=== PATIENT | male | born 1950 | race Caucasian/White ===

== ENCOUNTER 2017-08-31 11:40 | Inpatient (IN) | payer MEDICARE ==
[~2017-08-31] VITALS: Ht 177.8 cm; Wt 89.6 kg
[2017-08-31 12:28] LABS: BASOPHILS % (AUTO) 0.6 % (0.0-5.0); EOSINOPHILS % (AUTO) 0.9 % (0.0-8.0); HEMATOCRIT 47.4 % (42-54); LYMPHOCYTES % (AUTO) 12.7 % (21.0-51.0); MEAN CORPUSCULAR HEMOGLOBIN 29.2 pg (27.0-33.0); MONOCYTES % (AUTO) 8.7 % (3.0-13.0); NEUTROPHILS % (AUTO) 77.1 % (40.0-77.0); PLATELET COUNT (AUTO) 273 K/uL (130-400); RED CELL DISTRIBUTION WIDTH 13.6 % (11.0-15.5); WHITE BLOOD COUNT (AUTO) 5.8 K/uL (4.8-10.8)
[2017-08-31 12:49] LABS: CREATININE 0.8 mg/dL (0.5-1.5); POTASSIUM 4.2 mmol/L (3.5-5.1)
[2017-08-31 12:53] LABS: ALBUMIN 3.9 g/dL (3.5-5.0); BILIRUBIN,TOTAL 0.4 mg/dL (0.2-1.0); TOTAL PROTEIN, SERUM 7.1 g/dL (6.0-8.3)
[2017-08-31 13:06] LABS: INR 0.98 (0.85-1.15); PARTIAL THROMBOPLASTIN TIME 23.2 SEC (26.3-35.5); PROTHROMBIN TIME 10.3 SEC (9.6-11.6)
[2017-08-31 13:21] LABS: B-TYPE NATRIURETIC PEPTIDE 22 pg/mL (0-100)
[2017-08-31] MEDS ORDERED: SODIUM CHLORIDE 0.9% 1000ML 1,000 ML IV ONE (13:28)
[2017-08-31] MEDS ORDERED: SODIUM CHLORIDE 0.9% 1000ML 1,000 ML IV SCH (15:01)
[2017-08-31] MEDS ORDERED: HYDRALAZINE HCL 20 MG/ML VIAL IV PRN (15:15)
[2017-08-31] MEDS ORDERED: NITROGLYCERIN 0.4 MG SL TAB SL PRN (15:15)
[2017-08-31] MEDS ORDERED: ACETAMINOPHEN-CODEINE 300/30MG TAB PO PRN (15:15)
[2017-08-31] MEDS ORDERED: LACTULOSE 20 GM/30 ML UDCUP PO PRN (15:15)
[2017-08-31] MEDS ORDERED: ACETAMINOPHEN 325 MG TAB PO PRN ×2 (15:15)
[2017-08-31] MEDS ORDERED: ONDANSETRON HCL 4 MG/2 ML VIAL IV PRN (15:15)
[2017-08-31] MEDS ORDERED: LIDOCAINE HCL-MPF 1% 2ML VIAL IVP PRN (15:15)
[2017-08-31] MEDS ORDERED: POTASSIUM CHLORIDE 20 MEQ ERTAB PO PRN (15:15)
[2017-08-31] MEDS ORDERED: MAG HYDROX/AL HYDROX/SIMETH ES 30 ML SUSP UDCUP PO PRN (15:15)
[2017-08-31] MEDS ORDERED: POTASSIUM CHLORIDE 10% ELIXIR 20 MEQ/15 ML UDCUP PO PRN (15:15)
[2017-08-31] MEDS ORDERED: GUAIFENESIN-DM 200/20 MG 10 ML PO PRN (15:15)
[2017-08-31] MEDS ORDERED: MORPHINE SULFATE 2 MG/ML 1ML SYG IV PRN (15:15)
[2017-08-31] MEDS ORDERED: POTASSIUM CHLORIDE 20MEQ/100ML 100 ML IV PRN (15:15)
[2017-08-31 20:51] LABS: APPEARANCE,URINE Clear (CLEAR); BILIRUBIN,URINE Negative (NEGATIVE); COLOR,URINE Yellow (YELLOW); GLUCOSE, URINE (UA) Negative (NEGATIVE); KETONES,URINE Negative (NEGATIVE); LEUKOCYTE ESTERASE ,URINE Negative (NEGATIVE); NITRATE,URINE Negative (NEGATIVE); OCCULT BLOOD,URINE Negative (NEGATIVE); PH,URINE 6.5 (5.0-8.0); PROTEIN,URINE Negative (NEGATIVE); UROBILINOGEN,URINE 0.2 mg/dL (0.2-1.0)
[2017-08-31] MEDS: FAMOTIDINE/PF 20 MG/2 ML VIAL IV SCH (21:00)
[2017-08-31] MEDS ORDERED: FAMOTIDINE/PF 20 MG/2 ML VIAL IV ONE (22:42)
[2017-08-31 23:47] VITALS: BP 143/89
[2017-09-01] VITALS (12 sets, daily range): BP systolic 120–155; BP diastolic 80–101
[2017-09-01] MEDS ORDERED: ZOLPIDEM TARTRATE 5 MG TAB ONE (00:55)
[2017-09-01] MEDS ORDERED: ZOLPIDEM TARTRATE 5 MG TAB PO ONE (01:00)
[2017-09-01 04:12] LABS: HEMATOCRIT 43.6 % (42-54); MEAN CORPUSCULAR HGB CONC 33.7 g/dL (32.0-36.0); MEAN CORPUSCULAR VOLUME 85.9 fL (79-99); PLATELET COUNT (AUTO) 238 K/uL (130-400); RED BLOOD CELL COUNT(AUTO) 5.07 MIL/uL (4.50-6.20); RED CELL DISTRIBUTION WIDTH 13.1 % (11.0-15.5); WHITE BLOOD COUNT (AUTO) 4.5 K/uL (4.8-10.8)
[2017-09-01 04:37] LABS: POTASSIUM 4.7 mmol/L (3.5-5.1)
[2017-09-01] MEDS: FAMOTIDINE/PF 20 MG/2 ML VIAL IV SCH ×2 (08:34→20:30)
[2017-09-01] MEDS ORDERED: LIDOCAINE HCL 1% MDV 50ML VIAL ONE (14:14)
[2017-09-01] MEDS ORDERED: BUPIVACAINE/PF 0.25% 30ML VIAL IJ ONE (14:14)
[2017-09-01] MEDS ORDERED: MIDAZOLAM HCL 1 MG/ML 2ML VIAL ONE ×3 (16:06→16:32)
[2017-09-01] MEDS ORDERED: MEPERIDINE-PF 50 MG/ML SYG ONE ×2 (16:06→16:19)
[2017-09-01] MEDS ORDERED: CEFAZOLIN 1GM / D5W 50ML 150 ML ONE (16:06)
[2017-09-01] MEDS ORDERED: LOSA50TA37 PO (17:30)
[2017-09-01] MEDS ORDERED: DOXY100T2 PO (17:30)
[2017-09-01] MEDS ORDERED: LOSARTAN 50 MG TABLET PO SCH (21:00)
[2017-09-01] MEDS ORDERED: ZOLPIDEM TARTRATE 5 MG TAB PO PRN (21:45)
[2017-09-02] VITALS: BP 123/79
[2017-09-02] MEDS: CEFAZOLIN SODIUM 1 GM VIAL IVP SCH ×2 (00:16→10:33)
[2017-09-02 04:00] VITALS: BP 113/76
[2017-09-02 08:00] VITALS: BP 101/66
[2017-09-02 10:10] VITALS: BP 131/73
[2017-09-02] MEDS ORDERED: CEFAZOLIN SODIUM 1 GM VIAL ONE (10:30)
[2017-09-02] MEDS: FAMOTIDINE/PF 20 MG/2 ML VIAL IV SCH (10:33)
== END 2017-09-02 11:15 | disposition home or self-care (01) | DRG 243 ==
LOC: EDH 11:40 → EDHIP 16:00 → 2DH 23:35
PROVIDERS: ADMIT Internal Medicine; ATTEND Internal Medicine
PROC: 02H63JZ Insertion of Pacemaker Lead into Right Atrium, Percutaneous Approach (ICD-10-PCS; principal; 2017-09-01)
PROC: 0JH606Z Insertion of Pacemaker, Dual Chamber into Chest Subcutaneous Tissue and Fascia, Open Approach (ICD-10-PCS; 2017-09-01)
PROC: 02HK3JZ Insertion of Pacemaker Lead into Right Ventricle, Percutaneous Approach (ICD-10-PCS; 2017-09-01)
DX: I49.5 Sick sinus syndrome (principal); I44.2 Atrioventricular block, complete; E78.5 Hyperlipidemia, unspecified; I10 Essential (primary) hypertension; I45.10 Unspecified right bundle-branch block; M54.2 Cervicalgia; G89.29 Other chronic pain
CPT/HCPCS: 33208; 36415; 71045; 71046; 80048; 80053; 80061; 81003; 82550; 83880; 84443; 84484; 85025; 85027; 85610; 85730; 93005; 93306; 99152; 99153; 99291; A4218; C1785; J0690; J2175; J2250; J3490; J7030

== ENCOUNTER → 2018-07-25 | Outpatient (CLI) | payer MEDICARE ==
[~2018-07-25] MED LIST: DOXY100T2 PO; LOSA50TA64 PO
== END | disposition home or self-care (01) ==
LOC: SHCH 11:55
PROVIDERS: ATTEND Internal Medicine Cardiovascular Disease
DX: I65.23 Occlusion and stenosis of bilateral carotid arteries (principal)
CPT/HCPCS: 93880

== ENCOUNTER → 2019-08-23 | Outpatient (CLI) | payer MEDICARE, OTHER ==
[~2019-08-23] MED LIST changes: +LATA2.5D2 OP; +ROSU40 PO
== END | disposition home or self-care (01) ==
LOC: SHCH 07:52
PROVIDERS: ATTEND Internal Medicine Cardiovascular Disease
DX: I35.8 Other nonrheumatic aortic valve disorders (principal); R01.1 Cardiac murmur, unspecified
CPT/HCPCS: 93306; 93356

== ENCOUNTER 2019-08-29 05:42 | Day surgery (SDC) | payer MEDICARE, OTHER ==
[2019-08-28 12:53] VITALS: BP 140/85
[~2019-08-29] VITALS: Ht 177.8 cm; Wt 95.0 kg
[2019-08-29] VITALS (10 sets, daily range): BP systolic 117–136; BP diastolic 66–90
[~2019-08-29 05:42] MED LIST changes: -DOXY100T2 PO; -LATA2.5D2 OP
[2019-08-29] MEDS ORDERED: LATA2.5D2 OP (06:33)
[2019-08-29] MEDS ORDERED: ISOVUE-M 200 20 ML VIAL IT ONE (07:02)
--- NOTE | 2019-08-29 07:45 | NUR ---
CT CERVICAL MYELOGRAM PROCEDURE PERFORMED BY DR Nayan CALERO. PUNCTURE SITE LOWER BACK. PATIENT TOLERATED PROCEDURE WELL. END OF PROCEDURE AT 0725. CT SCAN DONE AND REPORT GIVEN TO Francisco THOMPSON RN. PATIENT TRANSPORTED TOTO DAY PATIENT AT 0745. AAAO X3 WITH NO C/O DISCOMFORT.
== END 2019-08-29 11:45 | disposition home or self-care (01) ==
LOC: DAH 05:42
PROVIDERS: ATTEND Neurological Surgery
DX: M54.12 Radiculopathy, cervical region (principal); Z79.899 Other long term (current) drug therapy; Z72.89 Other problems related to lifestyle
CPT/HCPCS: 62302; 72126; A4663; Q9966

== ENCOUNTER → 2023-07-30 | Outpatient (CLI) | payer MEDICARE ==
[~2023-07-30] MED LIST changes: +LATA2.5D14 OP
== END | disposition home or self-care (01) ==
LOC: SHCH 13:27
PROVIDERS: ATTEND Internal Medicine Cardiovascular Disease
DX: I35.1 Nonrheumatic aortic (valve) insufficiency (principal); I11.9 Hypertensive heart disease without heart failure; I27.20 Pulmonary hypertension, unspecified
CPT/HCPCS: 93306

== ENCOUNTER → 2023-08-04 | Outpatient (CLI) | payer MEDICARE | END | disposition home or self-care (01) | LOC: SHCH 09:19 | PROVIDERS: ATTEND Internal Medicine Cardiovascular Disease | DX: I65.23 Occlusion and stenosis of bilateral carotid arteries (principal); R55 Syncope and collapse; R01.1 Cardiac murmur, unspecified; Z79.899 Other long term (current) drug therapy | CPT/HCPCS: 93880 ==

== ENCOUNTER 2023-09-02 09:00 | Day surgery (SDC) | payer MEDICARE ==
[2023-08-31 08:56] VITALS: BP 140/80; PULSE 68; RESP 16
[2023-08-31 08:59] LABS: BASOPHILS # (AUTO) 0.08 K/uL (0.00-0.20); BASOPHILS % (AUTO) 1.3 % (0.0-5.0); EOSINOPHILS # (AUTO) 0.23 K/uL (0.00-0.70); EOSINOPHILS % (AUTO) 3.8 % (0.0-8.0); HEMATOCRIT 49.6 % (42-54); IMMATURE GRANULOCYTE ABSOLUTE 0.03 K/uL (0-1); LYMPHOCYTES # (AUTO) 0.9 K/uL (1.0-4.8); MEAN CORPUSCULAR HEMOGLOBIN 28.8 pg (27.0-33.0); MEAN CORPUSCULAR HGB CONC 32.7 g/dL (32.0-36.0); MEAN CORPUSCULAR VOLUME 88.3 fL (79-99); MONOCYTES # (AUTO) 0.6 K/uL (0.1-1.0); MONOCYTES % (AUTO) 10.5 % (3.0-13.0); NEUTROPHILS # (AUTO) 4.2 K/uL (1.8-7.7); NEUTROPHILS % (AUTO) 69.9 % (40.0-77.0); PLATELET COUNT (AUTO) 222 K/uL (130-400); RED BLOOD CELL COUNT(AUTO) 5.62 MIL/uL (4.50-6.20); RED CELL DISTRIBUTION WIDTH 13.5 % (11.0-15.5); WHITE BLOOD COUNT (AUTO) 6.1 K/uL (4.8-10.8)
[2023-08-31 09:06] LABS: CREATININE 0.8 mg/dL (0.5-1.5)
[2023-08-31 09:09] LABS: INR 0.94 (0.85-1.15)
[2023-08-31 09:10] LABS: PARTIAL THROMBOPLASTIN TIME 24.6 SEC (26.3-35.5)
[2023-09-02] VITALS (9 sets, daily range): BP systolic 105–140; BP diastolic 71–89; PULSE 61–79; RESP 14–18
[~2023-09-02] VITALS: Ht 180.3 cm; Wt 97.9 kg
[~2023-09-02 09:00] MED LIST changes: +AEC81 PO; -LATA2.5D14 OP; -LOSA50TA64 PO; +METO25TA6 PO; +NAPR-1023 PO; +PANT40TA54 PO
[2023-09-02] MEDS ORDERED: MIDAZOLAM HCL 1 MG/ML 2ML VIAL ONE ×5 (14:14→15:46)
[2023-09-02] MEDS ORDERED: LIDOCAINE HCL 1% MDV 50ML VIAL ONE (14:14)
[2023-09-02] MEDS ORDERED: MEPERIDINE-PF 25 MG/ML SYG ONE ×5 (14:14→15:46)
[2023-09-02] MEDS ORDERED: CEFAZOLIN SODIUM 1 GM VIAL ONE ×2 (14:15→14:16)
[2023-09-02] MEDS ORDERED: BUPIVACAINE/PF 0.25% 30ML VIAL IJ ONE (14:15)
[2023-09-02] MEDS ORDERED: IODIXANOL 320 MG/ML 100 ML VIAL ONE (14:15)
[2023-09-02] MEDS ORDERED: MORPHINE 4 MG SYG IVP PRN (17:00)
[2023-09-02] MEDS: MORPHINE 5 MG/ML VIAL (5MG OR GREATER DOSE) IV PRN (17:34)
[2023-09-02] MEDS: CEFAZOLIN SODIUM 1 GM VIAL ONE (19:14)
[2023-09-02] MEDS ORDERED: CEFAZOLIN SODIUM 2 GM VIAL IVPB ONE (20:00)
== END 2023-09-02 19:59 | disposition home or self-care (01) ==
LOC: DAH 09:00
PROVIDERS: ATTEND Internal Medicine Cardiovascular Disease
DX: I44.2 Atrioventricular block, complete (principal); I42.0 Dilated cardiomyopathy; I44.7 Left bundle-branch block, unspecified; I10 Essential (primary) hypertension; I35.0 Nonrheumatic aortic (valve) stenosis; E78.5 Hyperlipidemia, unspecified; Z79.899 Other long term (current) drug therapy; Z79.01 Long term (current) use of anticoagulants; Z98.890 Other specified postprocedural states; Z79.82 Long term (current) use of aspirin
CPT/HCPCS: 80048; 85025; 85610; 85730; 36415; 93005 ×2; 33207; 71045; C1769; C1785; C1898; C1894; J2270; J0690 ×2; J0665; J2250 ×5; J2175 ×5; J3490; Q9967; A4215; A4222; A4221; A4663; A4216; A4606; Q9965; A4223 ×3; 33216; 33228; 99156; 99157

== ENCOUNTER → 2024-06-28 | Outpatient (CLI) | payer MEDICARE | END | disposition home or self-care (01) | LOC: RAH 13:13 | PROVIDERS: ATTEND Internal Medicine Cardiovascular Disease | DX: I35.0 Nonrheumatic aortic (valve) stenosis (principal) | CPT/HCPCS: 93306 ==

== ENCOUNTER → 2024-09-14 | Outpatient (CLI) | payer MEDICARE ==
[~2024-09-14] MED LIST changes: -NAPR-1023 PO; +NAPR-1194 PO
--- NOTE | 2024-09-18 13:17 | HMCSR ---
APPROVED REPORT EXAM: Two-dimensional and M-mode echocardiogram with Doppler and color Doppler. INDICATION ICD: I35.0 Non-rheumatic aortic valve stenosis 2D Dimensions RVDd4.0 cmLVEF(%)45.0 (>50%)LVED Vol(simp.)126.0 mL IVSd1.2 (0.7-1.1cm)FS(%)22 %LVES Vol(simp.)51.0 mL LVDd4.7 (3.8-5.6cm)LA (2D)3.6 (1.6-4.0cm)LVEF(%, simp.)60 % PWd1.0 (0.7-1.1cm)Ao Root(2D)3.4 (2.0-3.7cm)LA ESV INDEX (4CH)31.75 mL/m2 IVSs1.3 cmLVOT diam2.4 (1.8-2.4cm) LVDs3.7 (2.5-4.0cm) PWs1.4 cm M-Mode Dimensions EPSS1.2 cm LA (MM)3.9 (1.6-4.0cm) Ao Root(MM)3.4 (2.0-3.7cm) Aortic Valve AoV Vmax3.2 m/Jesus Peak GR54.0 mmHgLVOT Vmax1.0 m/s AoV VTI0.7 mAo Mean GR32.1 mmHgLVOT VTI0.22 m ARACELI (VMAX)1.4 cm2Al P1/2T691 msAVA (VTI) 1.4 cm2 Mitral Valve MV E Vmax61.7 cm/sDECEL Brye832 msMV Peak GR2 mmHg MV A Vmax68.1 cm/sP 1/2 T49 msMV Mean GR1 mmHg E/A ratio0.9MVA (PHT)4.5 cm2 TDI E/E' Medial7.7E/E' Lateral7.7 Medial E' Peak V8.00 cm/sLateral E' Peak V8.00 cm/s Pulmonary Valve PV Vmax1.2 m/s Tricuspid Valve TR Vmax2.7 m/sRAP (EST) 8 cxOoBOMI50.8 mmHg TR Peak GR29.8 mmHg Left Ventricle The left ventricle is normal size. There is normal LV segmental wall motion. There is mild left ventr icular wall thickness. LVEF is 55%. No left ventricle thrombus noted on this study. The left ventricu lar diastolic function is normal. Right Ventricle The right ventricle is normal size. The right ventricular systolic function is normal. Device lead is present in the right ventricle. Atria The left atrium size is normal. The right atrium size is normal. Aortic Valve The aortic valve is midly calcified and displays decreased opening. Trace of aortic regurgitation is present. There is moderate to severe aortic valvular stenosis. Peak gradient of 54mmHg, mean gradient 32mmHg. Mitral Valve Mitral valve leaflets open well. There is mitral annular calcification. There is mild mitral valve re gurgitation noted. There is no mitral valve stenosis. Tricuspid Valve The tricuspid valve is normal in structure. There is moderate tricuspid valve regurgitation noted. Pulmonic Valve The pulmonary valve is normal in structure. There is no pulmonic valvular regurgitation. Great Vessels The aortic root is normal in size. IVC is not well visualized. Pericardium There is no pericardial effusion. Other Information Quality : Adequate Conclusion The left ventricle is normal size. There is mild left ventricular wall thickness. LVEF is 55%. The right ventricle is normal size. The left atrium size is normal. The aortic valve is midly calcified and displays decreased opening. Trace of aortic regurgitation is present. There is moderate to severe aortic valvular stenosis. Peak gradient of 54mmHg, mean gradient 32mmHg. Mitral valve leaflets open well. There is mitral annular calcification. There is mild mitral valve regurgitation noted. There is moderate tricuspid valve regurgitation noted. There is no pulmonic valvular regurgitation. The aortic root is normal in size. IVC is not well visualized. There is no pericardial effusion.
== END | disposition home or self-care (01) ==
LOC: RAH 10:36
PROVIDERS: ATTEND Internal Medicine Cardiovascular Disease
DX: I08.3 Combined rheumatic disorders of mitral, aortic and tricuspid valves (principal)
CPT/HCPCS: 93306